=== PATIENT | female | born 1945 | race Caucasian/White ===

== ENCOUNTER 2017-09-29 23:50 | Outpatient (CLI) | payer MEDICARE, OTHER | END 2017-09-29 23:59 | disposition home or self-care (01) | LOC: D.MAMMO 23:50 | DX: Z85.3 Personal history of malignant neoplasm of breast (principal) ==

== ENCOUNTER 2018-02-08 18:06 | Emergency (ER) | payer MEDICARE, OTHER ==
[~2018-02-08] VITALS: Ht 165.1 cm; Wt 95.5 kg
[2018-02-08 18:08] VITALS: Ht 165.1 cm; Wt 95.5 kg
[2018-02-08] MEDS ORDERED: ZOFRAN4 MG PO (18:11)
[2018-02-08] MEDS ORDERED: FUROSEMIDE20 MG (18:11)
[2018-02-08] MEDS ORDERED: AMBIEN5 MG (18:12)
[2018-02-08] MEDS ORDERED: XANAX1 MG PO (18:12)
[2018-02-08] MEDS ORDERED: NEXIUM20 MG PO (18:12)
[2018-02-08 18:42] LABS: BASOPHILS 0.6 % (0-2); EOSINOPHILS 1.6 % (0-7); HEMATOCRIT 40.9 % (36.0-48.0); HEMOGLOBIN 13.9 g/dL (12-16); IMMATURE GRANULOCYTES 0.2 % (0-5); LYMPHOCYTES 27.9 % (15-50); MCH 29.6 pg (26.0-34.0); MCV 87.2 fL (80.0-100.0); MEAN PLATELET VOLUME 10.1 fL (7.4-10.4); MONOCYTES 4.5 % (2-11); NEUTROPHILS 65.2 % (40-80); PLATELET COUNT 191 10x3/uL (130-400); RBC 4.69 10x6/uL (4.00-5.40); RDW 13.3 % (11.5-14.5); WBC 6.4 10x3/uL (4.8-10.8)
[2018-02-08 19:05] LABS: ALBUMIN 3.9 g/dL (3.4-5.0); ALKALINE PHOSPHATASE 89 U/L (46-116); ALT (SGPT) 47 U/L (10-68); BILIRUBIN - TOTAL 0.33 mg/dL (0.2-1.3); CALC OSMOLALITY 280 mosm/kg (275-300); CALCIUM 8.6 mg/dL (8.5-10.1); CARBON DIOXIDE 27.2 mmol/L (21.0-32.0); CHLORIDE - SERUM 105 mmol/L (98-107); CREATININE - SERUM 0.7 mg/dL (0.6-1.3); GLUCOSE 128 mg/dL (74-106); POTASSIUM - SERUM 3.7 mmol/L (3.5-5.1); PROTEIN - SERUM 7.8 g/dL (6.4-8.2); SODIUM 140 mmol/L (136-145); UREA NITROGEN 12 mg/dL (7-18); eGFR NON AFRICAN AMERICAN 88 mL/min (90-120)
[2018-02-08] MEDS ORDERED: HYDROCODON-ACE1 EAC7 PO (20:07)
[2018-02-08] MEDS ORDERED: CYCLOBENZAPRINE10 MG PO (20:07)
[2018-02-08 20:30] VITALS: BP 157/80
== END 2018-02-08 20:30 | disposition home or self-care (01) ==
LOC: D.ER 18:06
PROVIDERS: Family Medicine
DX: S29.012A Strain of muscle and tendon of back wall of thorax, initial encounter (principal); V43.52XA Car driver injured in collision with other type car in traffic accident, initial encounter; Y93.89 Activity, other specified; Y92.410 Unspecified street and highway as the place of occurrence of the external cause; M79.1 Myalgia; S13.4XXA Sprain of ligaments of cervical spine, initial encounter; R51 Headache; H53.2 Diplopia

== ENCOUNTER → 2018-04-27 15:44 | Outpatient (CLI) | payer MEDICARE, OTHER ==
[2018-02-08 18:08] VITALS: BMI 35.0
[~2018-04-27 15:44] MED LIST: AMBIEN5 MG; CYCLOBENZAPRINE10 MG PO; FUROSEMIDE20 MG; HYDROCODON-ACE1 EAC7 PO; NEXIUM20 MG PO; XANAX1 MG PO; ZOFRAN4 MG PO
[2018-04-27 16:44] LABS: ALBUMIN 3.9 g/dL (3.4-5.0); ALKALINE PHOSPHATASE 76 U/L (46-116); ALT (SGPT) 62 U/L (10-68); CALC OSMOLALITY 284 mosm/kg (275-300); CALCIUM 9.1 mg/dL (8.5-10.1); CARBON DIOXIDE 23.3 mmol/L (21.0-32.0); CHLORIDE - SERUM 104 mmol/L (98-107); CREATININE - SERUM 0.8 mg/dL (0.6-1.3); GLUCOSE 104 mg/dL (74-106); POTASSIUM - SERUM 3.8 mmol/L (3.5-5.1); PROTEIN - SERUM 7.9 g/dL (6.4-8.2); SODIUM 142 mmol/L (136-145); UREA NITROGEN 17 mg/dL (7-18); eGFR NON AFRICAN AMERICAN 75 mL/min (90-120)
== END | disposition home or self-care (01) ==
LOC: D.LABREF 15:44
PROVIDERS: Nurse Practitioner Acute Care
DX: K21.0 Gastro-esophageal reflux disease with esophagitis (principal); R13.10 Dysphagia, unspecified; R53.83 Other fatigue; R49.0 Dysphonia; R11.2 Nausea with vomiting, unspecified; Z86.010 Personal history of colon polyps

== ENCOUNTER → 2018-06-13 15:58 | Outpatient (CLI) | payer MEDICARE, OTHER ==
[2018-02-08 18:08] VITALS: BMI 35.0
[2018-06-13 17:47] LABS: BASOPHILS 0.3 % (0-2); EOSINOPHILS 1.8 % (0-7); HEMATOCRIT 39.7 % (36.0-48.0); HEMOGLOBIN 13.6 g/dL (12-16); IMMATURE GRANULOCYTES 0.3 % (0-5); LYMPHOCYTES 29.9 % (15-50); MCH 29.6 pg (26.0-34.0); MCHC 34.3 g/dL (31.0-37.0); MCV 86.5 fL (80.0-100.0); MEAN PLATELET VOLUME 11.2 fL (7.4-10.4); MONOCYTES 7.2 % (2-11); NEUTROPHILS 60.5 % (40-80); PLATELET COUNT 219 10x3/uL (130-400); RBC 4.59 10x6/uL (4.00-5.40); RDW 13.7 % (11.5-14.5)
[2018-06-13 18:59] LABS: ERYTHROCYTE SEDIMENTATION RATE 2 mm/hr (0-30)
== END | disposition home or self-care (01) ==
LOC: D.LABREF 15:58
PROVIDERS: Orthopaedic Surgery
DX: M25.561 Pain in right knee (principal)

== ENCOUNTER → 2018-06-28 11:33 | Outpatient (CLI) | payer MEDICARE, OTHER ==
[2018-02-08 18:08] VITALS: BMI 35.0
== END | disposition home or self-care (01) ==
LOC: D.NM 06-23 10:15
DX: M25.561 Pain in right knee (principal)

== ENCOUNTER → 2018-09-28 14:09 | Outpatient (CLI) | payer MEDICARE, OTHER ==
[2018-02-08 18:08] VITALS: BMI 35.0
--- NOTE | ~2018-09-28 | EC ---
PATIENT:LETI VORA DATE OF SERVICE: 09/28/18 SEX: F MEDICAL RECORD: [id number] DATE OF : [birth year] LOCATION:[facility] AGE OF PATIENT: 72 ADMISSION DATE: 09/28/18 REFERRING PHYSICIAN: INTERPRETING PHYSICIAN: KEITH BUCK MD ECHOCARDIOGRAM REPORT ECHO CHARGES 4 ECHO COMPLETE Date: 09/28/18 CLINICAL DIAGNOSIS: CARDIAC ARRHYTHMIA/VTACH HX OF CAD ECHOCARDIOGRAPHIC MEASUREMENTS (adult normal given) AC root (d.<3.7cm) 3.5 cm LV Septum d (<1.2 cm> 1.6 cm Valve Excursion 1.8 cm LV Septum (systole) 1.8 cm Left Atria (s.<4.0cm> 2.8 cm LVPW d(<1.2cm) 1.5 cm RV (d.<2.3cm) 3.2 cm LVPW (sytole) 1.7 cm LV diastole(<5.6CM) 4.7 cm MV E-F(>70mm/sec) cm LV systole 3.5 cm LVOT Diameter 1.8 cm MV exc.(>10mm) 2.0 cm Est.ejection fraction (50-75%) % DOPPLER: LVIT cm/sec A 97.0 cm/sec E 59.0 cm/sec LA cm/sec RVSP 22 mmHg LVOT 113 cm/sec AOP1/2T m/s Asc. Ao 142 cm/sec RVOT 74 cm/sec RA cm/sec PA 119 cm/sec AV Gradient Peak 8.05 mmHg AV Mean 4.19 mmHg AV Area 2.2 cm MV Gradient Peak 4.07 mmHg MV Mean 1.75 mmHg MV Area cm COMMENTS: Instrument Processing Tech: Ever BANKS Burlap Spreader: 1 Dr. Buck TAPE# PACS Pericardial Effusion N DATE OF SERVICE: 09/28/2018 PROCEDURE: Echocardiogram. FINDINGS: 1. Left ventricular chamber size is within normal limits. Left ventricular systolic function is normal. Overall ejection fraction estimated at 60%. 2. Left atrium, right atrium and right ventricular chamber sizes are within normal limits. 3. Valvular structures have normal structure and motion. ECHOCARDIOGRAM REPORT [id number] LETI VORA 4. Doppler interrogation reveals mild aortic insufficiency, mild tricuspid regurgitation, no other valvular insufficiency or stenosis. Pulmonary systolic pressure is normal estimated at 22 mmHg. 5. No evidence of pericardial effusion or left ventricular thrombus. TRANSINT:[id number] Voice Confirmation ID: [id number] DOCUMENT ID: [id number] KEITH BUCK MD CC: [id number] DICTATION DATE: 10/03/18 1025 BEVELER: 10/03/18 1127 DEP CLI 09/28/18 [place] [id number] [place] [id number]
== END | disposition home or self-care (01) ==
LOC: D.HCCARDIO 13:30
PROVIDERS: ATTEND Internal Medicine Interventional Cardiology
DX: I47.2 Ventricular tachycardia (principal)

== ENCOUNTER 2018-10-05 08:00 | Outpatient (CLI) | payer MEDICARE, OTHER ==
[2018-02-08 18:08] VITALS: BMI 35.0
== END 2018-10-05 09:00 | disposition home or self-care (01) ==
LOC: D.MAMMO 08:00
PROVIDERS: ATTEND Internal Medicine Medical Oncology
DX: D05.12 Intraductal carcinoma in situ of left breast (principal)

== ENCOUNTER 2019-03-08 17:00 | Inpatient (IN) | payer MEDICARE, OTHER ==
[~2019-03-08] VITALS: Ht 165.1 cm; Wt 100.7 kg
[2019-03-08 17:41] VITALS: BP 148/79
[2019-03-08 18:39] LABS: BASOPHILS 0.4 % (0-2); EOSINOPHILS 0.8 % (0-7); HEMATOCRIT 36.8 % (36.0-48.0); HEMOGLOBIN 12.7 g/dL (12-16); IMMATURE GRANULOCYTES 0.2 % (0-5); LYMPHOCYTES 26.5 % (15-50); MCH 29.3 pg (26.0-34.0); MCHC 34.5 g/dL (31.0-37.0); MEAN PLATELET VOLUME 9.6 fL (7.4-10.4); MONOCYTES 7.2 % (2-11); NEUTROPHILS 64.9 % (40-80); PLATELET COUNT 185 10x3/uL (130-400); RBC 4.33 10x6/uL (4.00-5.40); RDW 13.8 % (11.5-14.5); WBC 9.7 10x3/uL (4.8-10.8)
[2019-03-08 19:09] LABS: ALBUMIN 3.5 g/dL (3.4-5.0); ALKALINE PHOSPHATASE 63 U/L (46-116); ALT (SGPT) 25 U/L (10-68); BILIRUBIN - TOTAL 0.44 mg/dL (0.2-1.3); CALC OSMOLALITY 276 mosm/kg (275-300); CALCIUM 8.6 mg/dL (8.5-10.1); CARBON DIOXIDE 24.7 mmol/L (21.0-32.0); CHLORIDE - SERUM 105 mmol/L (98-107); CREATININE - SERUM 0.7 mg/dL (0.6-1.3); GLUCOSE 106 mg/dL (74-106); POTASSIUM - SERUM 3.3 mmol/L (3.5-5.1); PROTEIN - SERUM 6.9 g/dL (6.4-8.2); SODIUM 140 mmol/L (136-145); UREA NITROGEN 8 mg/dL (7-18); eGFR NON AFRICAN AMERICAN 87 mL/min (90-120)
[2019-03-08 22:07] VITALS: BP 130/82
[2019-03-09 05:45] VITALS: BP 136/66
[2019-03-09 05:53] LABS: INR 1.14 (0.85-1.17); PROTIME 14.1 SECONDS (11.6-15.0)
[2019-03-09 06:02] LABS: BASOPHILS 0.3 % (0-2); EOSINOPHILS 1.3 % (0-7); HEMATOCRIT 35.4 % (36.0-48.0); IMMATURE GRANULOCYTES 0.3 % (0-5); LYMPHOCYTES 31.7 % (15-50); MCHC 33.9 g/dL (31.0-37.0); MCV 85.5 fL (80.0-100.0); MONOCYTES 9.5 % (2-11); NEUTROPHILS 56.9 % (40-80); PLATELET COUNT 176 10x3/uL (130-400); RBC 4.14 10x6/uL (4.00-5.40); RDW 13.9 % (11.5-14.5)
[2019-03-09 06:17] LABS: ALBUMIN 3.1 g/dL (3.4-5.0); ALKALINE PHOSPHATASE 52 U/L (46-116); ALT (SGPT) 25 U/L (10-68); AMYLASE - SERUM 5 U/L (25-115); BILIRUBIN - TOTAL 0.64 mg/dL (0.2-1.3); CALC OSMOLALITY 280 mosm/kg (275-300); CALCIUM 8.1 mg/dL (8.5-10.1); CARBON DIOXIDE 24.4 mmol/L (21.0-32.0); CHLORIDE - SERUM 106 mmol/L (98-107); CREATININE - SERUM 0.7 mg/dL (0.6-1.3); GLUCOSE 93 mg/dL (74-106); LIPASE 45 U/L (73-393); MAGNESIUM - SERUM 1.9 mg/dL (1.8-2.4); PHOSPHOROUS 3.6 mg/dL (2.5-4.9); POTASSIUM - SERUM 3.4 mmol/L (3.5-5.1); PROTEIN - SERUM 6.3 g/dL (6.4-8.2); SODIUM 142 mmol/L (136-145); UREA NITROGEN 7 mg/dL (7-18); eGFR NON AFRICAN AMERICAN 87 mL/min (90-120)
[2019-03-09 06:23] LABS: WBC 6.8 10x3/uL (4.8-10.8)
[2019-03-09 07:21] LABS: APPEARANCE CLEAR (CLEAR); BACTERIA MODERATE /hpf (NONE SEEN); BILIRUBIN NEGATIVE (NEGATIVE); COLOR YELLOW (YELLOW); EPITHELIAL CELLS 0-5 /hpf (0-5); GLUCOSE NEGATIVE (NEGATIVE); KETONE MODERATE mg/dL (NEGATIVE); MUCUS >1+ /lpf (NONE SEEN); NITRITE NEGATIVE (NEGATIVE); PROTEIN NEGATIVE (NEGATIVE); UROBILINOGEN NORMAL (NORMAL)
[2019-03-09 09:39] VITALS: BP 138/63
[2019-03-09 12:49] VITALS: BMI 36.9
[2019-03-09 12:56] VITALS: BP 131/64
[2019-03-09 14:25] VITALS: Ht 165.1 cm; Wt 100.7 kg
[2019-03-09 17:23] VITALS: BP 131/60
[2019-03-09 21:10] VITALS: BP 128/58
[2019-03-10 01:14] VITALS: BP 139/61
[2019-03-10 04:57] LABS: BASOPHILS 0.2 % (0-2); EOSINOPHILS 1.1 % (0-7); HEMATOCRIT 34.9 % (36.0-48.0); HEMOGLOBIN 11.8 g/dL (12-16); LYMPHOCYTES 30.3 % (15-50); MCH 28.8 pg (26.0-34.0); MCHC 33.8 g/dL (31.0-37.0); MCV 85.1 fL (80.0-100.0); MEAN PLATELET VOLUME 9.2 fL (7.4-10.4); MONOCYTES 8.1 % (2-11); NEUTROPHILS 60.3 % (40-80); PLATELET COUNT 176 10x3/uL (130-400); RDW 13.7 % (11.5-14.5)
[2019-03-10 04:58] LABS: WBC 4.6 10x3/uL (4.8-10.8)
[2019-03-10 05:08] LABS: CALC OSMOLALITY 275 mosm/kg (275-300); CALCIUM 8.2 mg/dL (8.5-10.1); CHLORIDE - SERUM 103 mmol/L (98-107); CREATININE - SERUM 0.7 mg/dL (0.6-1.3); GLUCOSE 88 mg/dL (74-106); MAGNESIUM - SERUM 1.9 mg/dL (1.8-2.4); PHOSPHOROUS 3.1 mg/dL (2.5-4.9); POTASSIUM - SERUM 3.4 mmol/L (3.5-5.1); SODIUM 140 mmol/L (136-145); UREA NITROGEN 6 mg/dL (7-18); eGFR NON AFRICAN AMERICAN 87 mL/min (90-120)
[2019-03-10 05:38] VITALS: BP 135/61
[2019-03-10 09:40] VITALS: BP 130/66
[2019-03-10 13:03] VITALS: BP 130/60
[2019-03-10 16:24] VITALS: BP 142/71
[2019-03-10 20:26] VITALS: BP 159/82
[2019-03-11 00:48] VITALS: BP 141/68
[2019-03-11 05:17] VITALS: BP 160/82
[2019-03-11 06:49] LABS: BASOPHILS 0.2 % (0-2); EOSINOPHILS 1.2 % (0-7); HEMATOCRIT 35.5 % (36.0-48.0); HEMOGLOBIN 12.1 g/dL (12-16); IMMATURE GRANULOCYTES 0.2 % (0-5); LYMPHOCYTES 26.7 % (15-50); MCH 28.9 pg (26.0-34.0); MCHC 34.1 g/dL (31.0-37.0); MCV 84.9 fL (80.0-100.0); MEAN PLATELET VOLUME 9.9 fL (7.4-10.4); MONOCYTES 11.4 % (2-11); NEUTROPHILS 60.3 % (40-80); PLATELET COUNT 200 10x3/uL (130-400); RBC 4.18 10x6/uL (4.00-5.40); RDW 13.5 % (11.5-14.5)
[2019-03-11 07:15] LABS: CALC OSMOLALITY 274 mosm/kg (275-300); CALCIUM 8.3 mg/dL (8.5-10.1); CARBON DIOXIDE 23.7 mmol/L (21.0-32.0); CHLORIDE - SERUM 104 mmol/L (98-107); CREATININE - SERUM 0.6 mg/dL (0.6-1.3); GLUCOSE 88 mg/dL (74-106); MAGNESIUM - SERUM 1.7 mg/dL (1.8-2.4); PHOSPHOROUS 3.2 mg/dL (2.5-4.9); POTASSIUM - SERUM 3.7 mmol/L (3.5-5.1); SODIUM 140 mmol/L (136-145); UREA NITROGEN 5 mg/dL (7-18); eGFR NON AFRICAN AMERICAN > 90 mL/min (90-120)
[2019-03-11 08:08] VITALS: BP 142/66
[2019-03-11 12:24] VITALS: BP 125/59
[2019-03-11 17:24] VITALS: BP 140/71
[2019-03-11 20:58] VITALS: BP 141/71
[2019-03-12 00:48] VITALS: BP 140/67
[2019-03-12 05:24] VITALS: BP 130/64
[2019-03-12 05:52] LABS: BASOPHILS 0.1 % (0-2); EOSINOPHILS 0.4 % (0-7); HEMATOCRIT 36.5 % (36.0-48.0); HEMOGLOBIN 12.5 g/dL (12-16); IMMATURE GRANULOCYTES 0.4 % (0-5); LYMPHOCYTES 20.7 % (15-50); MCH 28.9 pg (26.0-34.0); MCHC 34.2 g/dL (31.0-37.0); MCV 84.3 fL (80.0-100.0); MEAN PLATELET VOLUME 10.3 fL (7.4-10.4); MONOCYTES 10.2 % (2-11); NEUTROPHILS 68.2 % (40-80); PLATELET COUNT 216 10x3/uL (130-400); RBC 4.33 10x6/uL (4.00-5.40); RDW 13.7 % (11.5-14.5)
[2019-03-12 06:02] LABS: CALC OSMOLALITY 275 mosm/kg (275-300); CALCIUM 8.3 mg/dL (8.5-10.1); CARBON DIOXIDE 26.1 mmol/L (21.0-32.0); CHLORIDE - SERUM 103 mmol/L (98-107); CREATININE - SERUM 0.7 mg/dL (0.6-1.3); GLUCOSE 94 mg/dL (74-106); MAGNESIUM - SERUM 2.3 mg/dL (1.8-2.4); POTASSIUM - SERUM 3.7 mmol/L (3.5-5.1); SODIUM 140 mmol/L (136-145); UREA NITROGEN 4 mg/dL (7-18); eGFR NON AFRICAN AMERICAN 87 mL/min (90-120)
[2019-03-12 06:11] LABS: WBC 7.2 10x3/uL (4.8-10.8)
[2019-03-12 12:14] VITALS: BP 131/61
[2019-03-12 17:04] VITALS: BP 140/75
[2019-03-12 20:00] VITALS: BP 148/72
[2019-03-13] VITALS: BP 137/70
[2019-03-13 04:00] VITALS: BP 143/69
[2019-03-13 06:42] LABS: BASOPHILS 0.2 % (0-2); EOSINOPHILS 1.7 % (0-7); HEMATOCRIT 35.4 % (36.0-48.0); HEMOGLOBIN 11.9 g/dL (12-16); IMMATURE GRANULOCYTES 0.4 % (0-5); LYMPHOCYTES 29.1 % (15-50); MCH 28.5 pg (26.0-34.0); MCHC 33.6 g/dL (31.0-37.0); MCV 84.7 fL (80.0-100.0); MEAN PLATELET VOLUME 9.7 fL (7.4-10.4); MONOCYTES 10.3 % (2-11); NEUTROPHILS 58.3 % (40-80); PLATELET COUNT 221 10x3/uL (130-400); RBC 4.18 10x6/uL (4.00-5.40); RDW 13.9 % (11.5-14.5)
[2019-03-13 06:47] LABS: WBC 4.8 10x3/uL (4.8-10.8)
[2019-03-13 07:06] LABS: CALC OSMOLALITY 280 mosm/kg (275-300); CALCIUM 8.2 mg/dL (8.5-10.1); CARBON DIOXIDE 24.7 mmol/L (21.0-32.0); CHLORIDE - SERUM 106 mmol/L (98-107); CREATININE - SERUM 0.7 mg/dL (0.6-1.3); GLUCOSE 112 mg/dL (74-106); MAGNESIUM - SERUM 1.9 mg/dL (1.8-2.4); PHOSPHOROUS 3.3 mg/dL (2.5-4.9); POTASSIUM - SERUM 3.3 mmol/L (3.5-5.1); SODIUM 142 mmol/L (136-145); UREA NITROGEN 4 mg/dL (7-18); eGFR NON AFRICAN AMERICAN 87 mL/min (90-120)
[2019-03-13 08:55] VITALS: BP 157/82
[2019-03-13 12:27] VITALS: BP 130/76
[2019-03-13 16:25] VITALS: BP 154/73
[2019-03-13 20:00] VITALS: BP 144/73
[2019-03-14 00:59] VITALS: BP 146/68
[2019-03-14 04:51] LABS: BASOPHILS 0.6 % (0-2); EOSINOPHILS 1.8 % (0-7); HEMATOCRIT 37.1 % (36.0-48.0); HEMOGLOBIN 12.6 g/dL (12-16); IMMATURE GRANULOCYTES 0.4 % (0-5); LYMPHOCYTES 33.9 % (15-50); MCH 28.5 pg (26.0-34.0); MCV 83.9 fL (80.0-100.0); MEAN PLATELET VOLUME 9.5 fL (7.4-10.4); MONOCYTES 10.1 % (2-11); NEUTROPHILS 53.2 % (40-80); PLATELET COUNT 248 10x3/uL (130-400); RBC 4.42 10x6/uL (4.00-5.40); RDW 13.7 % (11.5-14.5)
[2019-03-14 05:02] LABS: CALC OSMOLALITY 280 mosm/kg (275-300); CALCIUM 8.8 mg/dL (8.5-10.1); CARBON DIOXIDE 26.1 mmol/L (21.0-32.0); CHLORIDE - SERUM 106 mmol/L (98-107); CREATININE - SERUM 0.7 mg/dL (0.6-1.3); GLUCOSE 109 mg/dL (74-106); MAGNESIUM - SERUM 1.8 mg/dL (1.8-2.4); PHOSPHOROUS 3.4 mg/dL (2.5-4.9); POTASSIUM - SERUM 3.2 mmol/L (3.5-5.1); SODIUM 142 mmol/L (136-145); UREA NITROGEN 3 mg/dL (7-18); eGFR NON AFRICAN AMERICAN 87 mL/min (90-120)
[2019-03-14 05:08] VITALS: BP 141/82
[2019-03-14 08:56] VITALS: BP 154/62
[2019-03-14] MEDS ORDERED: FLORAJEN3 CAPS460 MG PO (11:58)
[2019-03-14] MEDS ORDERED: CARAFATE1 G PO (11:59)
[2019-03-14] MEDS ORDERED: PROTONIX40 MG PO (11:59)
[2019-03-14] MEDS ORDERED: LEVAQUIN750 MG PO (11:59)
[2019-03-14] MEDS ORDERED: QUESTRAN LIG1 PACKET PO (12:00)
[2019-03-14] MEDS ORDERED: ZOFRAN ODT4 MG/UDTAB PO (12:00)
[2019-03-14] MEDS ORDERED: FLAGYL500 MG PO (12:00)
--- NOTE | 2019-03-14 12:51 | MORECARE ---
CASE MANAGEMENT DISCHARGE SUMMARY PATIENT: LETI VORA UNIT: [id number] ADM DATE: 03/09/19 AGE: 73 : [birth year] SEX: F ROOM/BED: D.2204 AUTHOR: JAREN MCHUGH PHYSICIAN: REFERRING PHYSICIAN: MAYI CASTAÑEDA MD DATE OF SERVICE: 03/14/19 Discharge Plan Patient Name: LETI VORA Facility: [facility]:[place] : 1945 Planned Disposition: Home or Self Care Anticipated Discharge Date: Discharge Date: Expected LOS: Initial Reviewer: [email or web address] Initial Review Date: 03/08/2019 Generated: 03/14/19 1:51 pm Coverage Notice Reviewer: [email or web address] - Shaila Meyer Notice Issued Date-Time: 03/14/2019 12:40 Notice Type: IM Discharge Notice Notice Delivered To: Patient Relationship to Patient: Medical Record Librarian Name: Delivery Method: HAND - Hand Delivered Luna Days: Prior Verbal Notification: Recipient Understood Notice: Yes Recipient Signature: Yes Med Rec Note Co-signed by Attending: Coverage Notice Comment: Patient Name: LETI VORA Page 85231 at 1251 All edits/amendments must be made on the electronic document DICTATION DATE: 03/14/19 1250 TELEPHONE CLAIMS REPRESENTATIVE: BELKIS 03/14/19 1250 RPT#: [id number] DC DATE: STATUS: ADM IN [place] [address] [place] [address] END OF REPORT
[2019-03-14 12:55] VITALS: BP 166/88
--- NOTE | 2019-03-14 12:59 | MORECARE ---
CASE MANAGEMENT DISCHARGE SUMMARY PATIENT: LETI VORA UNIT: [id number] ADM DATE: 03/09/19 AGE: 73 : [birth year] SEX: F ROOM/BED: D.9891 AUTHOR: LOLITADOC PHYSICIAN: REFERRING PHYSICIAN: MAYI CASTAÑEDA MD DATE OF SERVICE: 03/14/19 Discharge Plan Patient Name: LETI VORA Facility: [facility]:[place] : 1945 Planned Disposition: Home or Self Care Anticipated Discharge Date: Discharge Date: Expected LOS: Initial Reviewer: [email or web address] Initial Review Date: 03/08/2019 Generated: 03/14/19 1:59 pm Comments DCP- Discharge Planning Updated by [email or web address]: Shaila Meyer on 03/14/19 11:[address] Patient Name: LETI VORA Admission Status: Urgent Accout number: [id number] Admission Date: 03-09-2019 : 1945 Admission Diagnosis: Attending: MAYI CASTAÑEDA Current LOS: 5 Anticipated DC Date: Planned Disposition: Home or Self Care Primary Insurance: MEDICARE A & B Discharge Planning Comments: CM met with patient to complete initial dc planning assessment. CM educated patient on the CM role and verbal consent given by patient to complete assessment. Patient lives at home where she is independent with her care. At discharge patient plans to return home and feels this is a safe discharge. Her friend Benito Vance will be her production truck driver home today. CM discussed availability of home health, rehab services, and medical equipment. Patient denied known discharge needs at this time. IMM served and explained. CM will continue to follow and will assist as needed with dc plans/needs. Audio Director: Shaila Meyer DCPIA - Discharge Planning Initial Assessment Updated by [id number]: Shaila Meyer on 03/14/19 12:52 pm * Is the patient Alert and Oriented? Yes * How many steps to enter\exit or inside your home? * PCP [facility] * [facility] * Preadmission Environment Home Alone * ADLs Independent * Equipment None * List name and contact numbers for known caregivers / representatives who currently or will assist patient after discharge: RICARDO LEZAMA [phone] * Verbal permission to speak to the caregivers and representatives has been obtained from the patient. N/A * Community resources currently utilized None * Additional services required to return to the preadmission environment? No * Can the patient safely return to the preadmission environment? Yes * Has this patient been hospitalized within the prior 30 days at any hospital? No Coverage Notice Reviewer: [id number] Patrick Meyer Notice Issued Date-Time: 03/14/2019 12:40 Notice Type: IM Discharge Notice Notice Delivered To: Patient Relationship to Patient: Orientation & Mobility Specialist Name: Delivery Method: HAND - Hand Delivered Luna Days: Prior Verbal Notification: Recipient Understood Notice: Yes Recipient Signature: Yes Med Rec Note Co-signed by Attending: Coverage Notice Comment: Last DP export: 03/14/19 11:51 am Patient Name: LETI VORA Page [id number] at 1259 All edits/amendments must be made on the electronic document DICTATION DATE: 03/14/19 1259 COKE HANDLING SUPERVISOR: BELKIS 03/14/19 1259 RPT#: [id number] DC DATE: STATUS: ADM IN [facility] [address] [place] [address] END OF REPORT
--- NOTE | 2019-03-15 11:40 | MORECARE ---
CASE MANAGEMENT DISCHARGE SUMMARY PATIENT: LETI VORA UNIT: [id number] ADM DATE: 03/09/19 AGE: 73 : 47 SEX: F ROOM/BED: D.7875 AUTHOR: LOLITADOC PHYSICIAN: REFERRING PHYSICIAN: MAYI CASTAÑEDA MD DATE OF SERVICE: 03/15/19 Discharge Plan Patient Name: LETI VORA Facility: [facility]:[place] : 1945 Planned Disposition: Home or Self Care Anticipated Discharge Date: Discharge Date: 03/14/2019 Expected LOS: 0 Initial Reviewer: Initial Review Date: 03/08/2019 Generated: 03/15/19 12:40 pm Comments DCP- Discharge Planning Updated by [email or web address]: Shaila Meyer on 03/14/19 11:[address] Patient Name: LETI VORA Admission Status: Urgent Accout number: [id number] Admission Date: 03-09-2019 : 1945 Admission Diagnosis: Attending: MAYI CASTAÑEDA Current LOS: 5 Anticipated DC Date: Planned Disposition: Home or Self Care Primary Insurance: MEDICARE A & B Discharge Planning Comments: CM met with patient to complete initial dc planning assessment. CM educated patient on the CM role and verbal consent given by patient to complete assessment. Patient lives at home where she is independent with her care. At discharge patient plans to return home and feels this is a safe discharge. Her friend Benito Vance will be her city bus driver home today. CM discussed availability of home health, rehab services, and medical equipment. Patient denied known discharge needs at this time. IMM served and explained. CM will continue to follow and will assist as needed with dc plans/needs. Pulp Operator: Shaila Meyer DCPIA - Discharge Planning Initial Assessment Updated by [id number]: Shaila Meyer on 03/14/19 12:52 pm * Is the patient Alert and Oriented? Yes * How many steps to enter\exit or inside your home? * PCP [facility] * [facility] * Preadmission Environment Home Alone * ADLs Independent * Equipment None * List name and contact numbers for known caregivers / representatives who currently or will assist patient after discharge: RICARDO LEZAMA [phone] * Verbal permission to speak to the caregivers and representatives has been obtained from the patient. N/A * Community resources currently utilized None * Additional services required to return to the preadmission environment? No * Can the patient safely return to the preadmission environment? Yes * Has this patient been hospitalized within the prior 30 days at any hospital? No Coverage Notice Reviewer: [email or web address] Patrick Meyer Notice Issued Date-Time: 03/14/2019 12:40 Notice Type: IM Discharge Notice Notice Delivered To: Patient Relationship to Patient: Copy Center Operator Name: Delivery Method: HAND - Hand Delivered Luna Days: Prior Verbal Notification: Recipient Understood Notice: Yes Recipient Signature: Yes Med Rec Note Co-signed by Attending: Coverage Notice Comment: Last DP export: 03/14/19 11:59 am Patient Name: LETI VORA Page 58120 at 1140 All edits/amendments must be made on the electronic document DICTATION DATE: 03/15/19 1140 RESTORATIVE COORDINATOR: BELKIS 03/15/19 1140 RPT#: [id number] DC DATE:03/14/19 STATUS: DIS IN [facility] [address] [place] [address] END OF REPORT
== END 2019-03-14 14:45 | disposition home or self-care (01) | DRG 392 ==
LOC: D.MS 17:00 → OBSVTIME 18:01 → D.MS 03-09 14:14
PROVIDERS: Family Medicine; ADMIT Internal Medicine Nephrology; ATTEND Internal Medicine Nephrology
DX: K57.92 Diverticulitis of intestine, part unspecified, without perforation or abscess without bleeding (principal); N39.0 Urinary tract infection, site not specified; K59.00 Constipation, unspecified; E87.6 Hypokalemia; K21.0 Gastro-esophageal reflux disease with esophagitis